=== PATIENT | female | born 1995 | race Caucasian/White ===

== ENCOUNTER 2018-08-07 23:59 | Inpatient (IN) | payer MEDICAID ==
[2018-08-08] MEDS: LACTATED RINGER'S 1,000 ML IV ×4 (01:04→21:23)
[2018-08-08] MEDS: TERBUTALINE 1 MG/ML INJ SC ×3 (01:08→08:45)
[2018-08-08 01:19] LABS: ADD UMIC YES; UR AMORPHOUS CRYSTAL FEW /HPF (NONE SEEN); UR ASCORBIC ACID NEGATIVE (NEGATIVE); UR BACTERIA FEW /HPF (NONE SEEN); UR BILIRUBIN (Dip) NEGATIVE (NEGATIVE); UR BLOOD (Dip) 2+ mg/dL (NEGATIVE); UR CLARITY CLOUDY (CLEAR); UR COLOR YELLOW (YELLOW); UR GLUCOSE (Dip) NEGATIVE (NEGATIVE); UR KETONES (Dip) NEGATIVE (NEGATIVE); UR LEUKOCYTE ESTERASE (Dip) 3+ Leu/ul (NEGATIVE); UR NITRITE (Dip) NEGATIVE (NEGATIVE); UR RBC 3 /HPF (0-5); UR SPECIFIC GRAVITY (Dip) 1.012 (1.003-1.030); UR SQUAMOUS EPITHELIAL CELL FEW /HPF (FEW); UR TOTAL PROTEIN (Dip) NEGATIVE (NEGATIVE); UR UROBILINOGEN (Dip) NEGATIVE (NEGATIVE); UR WBC 41 /HPF (0-5)
[2018-08-08] MEDS: LACTATED RINGER'S 250 ML IV (02:30)
[2018-08-08] MEDS ORDERED: OXYTOCIN 30 UNITS/LR 500 ML IV (07:00)
[2018-08-08] MEDS ORDERED: CARBOPROST 250 MCG INJ IM ×2 (07:00→14:00)
[2018-08-08] MEDS ORDERED: METHYLERGONOVINE 0.2 MG INJ IM ×2 (07:00→14:00)
[2018-08-08] MEDS ORDERED: MISOPROSTOL 200 MCG TAB PR ×2 (07:00→14:00)
[2018-08-08] MEDS ORDERED: CEFAZOLIN 2 GM/50 ML (PMX) 50 ML IVPB (07:00)
[2018-08-08 07:37] LABS: ADD MAN DIFF? NO
[2018-08-08 07:47] LABS: BASOPHILS % 0.1 % (0.0-2.0); EOSINOPHILS % 0.1 % (0.0-7.0); HEMATOCRIT 30.2 % (37.0-47.0); LYMPHOCYTES % 21.5 % (15.0-51.0); MEAN CORPUSCULAR HEMOGLOBIN 32.5 pg (29.0-33.0); MEAN CORPUSCULAR HGB CONC 33.1 g/dl (32.0-37.0); MEAN CORPUSCULAR VOLUME 98.1 fl (82.0-101.0); MEAN PLATELET VOLUME 10.7 fl (7.4-10.4); MONOCYTE # 0.5 10^3/ul (0.3-0.9); MONOCYTES % 5.2 % (0.0-11.0); NEUTROPHIL # 6.9 10^3/ul (1.6-7.5); NEUTROPHILS % 72.8 % (39.0-77.0); PLATELET COUNT 192 10^3/UL (140-415); RED BLOOD COUNT 3.08 10^6/ul (4.20-5.40); RED CELL DISTRIBUTION WIDTH 12.8 % (11.5-14.5)
[2018-08-08 07:47] LABS: WHITE BLOOD COUNT 9.5 10^3/ul (4.8-10.8)
[2018-08-08 08:00] LABS: INR 0.93; PROTIME 12.6 Sec (11.9-14.9)
[2018-08-08 08:01] LABS: PARTIAL THROMBOPLASTIN TIME 26.5 Sec (23.0-35.0)
[2018-08-08 08:29] LABS: HEPATITIS B SURFACE ANTIGEN NEGATIVE (NEGATIVE)
[2018-08-08] MEDS: CITRIC ACID/NA CITRATE 30 ML CUP PO (08:55)
[2018-08-08] MEDS ORDERED: morphine SULFATE/PF (10 MG/10 ML) INJ (09:19)
[2018-08-08] MEDS ORDERED: METOCLOPRAMIDE 10 MG INJ (09:19)
[2018-08-08] MEDS ORDERED: ONDANSETRON 4 MG INJ (09:19)
[2018-08-08] MEDS ORDERED: KETOROLAC 30 MG INJ (09:29)
[2018-08-08] MEDS ORDERED: PROPOFOL 20 ML (09:47)
[2018-08-08] MEDS ORDERED: NALOXONE (0.4 MG/ML) INJ IV (10:30)
[2018-08-08] MEDS ORDERED: ONDANSETRON 4 MG INJ IV ×2 (10:30)
[2018-08-08] MEDS ORDERED: DIPHENHYDRAMINE 50 MG INJ IV ×2 (10:30)
[2018-08-08] MEDS ORDERED: morphine (1 MG/ML) 10ML SYRINGE IV ×3 (10:30)
[2018-08-08] MEDS ORDERED: morphine 2 MG INJ IV ×2 (10:30)
[2018-08-08] MEDS: OXYTOCIN 30 UNITS/LR 500 ML IV ×3 (10:55→14:23)
[2018-08-08] MEDS: KETOROLAC 30 MG INJ IV ×2 (11:01→19:22)
[2018-08-08] MEDS: morphine 2 MG INJ IV (12:53)
[2018-08-08] MEDS ORDERED: NACL 0.9% 3 ML SYG IV (14:00)
[2018-08-08] MEDS ORDERED: NA PHOSPHATE/BIPHOS 133 ML ENEMA PR (14:00)
[2018-08-08 15:38] LABS: RAPID PLASMA REAGIN NONREACTIVE (NR)
[2018-08-09] MEDS: OXYTOCIN 30 UNITS/LR 500 ML IV (01:10)
[2018-08-09] MEDS: KETOROLAC 30 MG INJ IV ×2 (01:35→08:15)
[2018-08-09 07:27] LABS: ADD MAN DIFF? NO
[2018-08-09 07:41] LABS: BASOPHILS % 0.1 % (0.0-2.0); EOSINOPHILS % 0.1 % (0.0-7.0); HEMATOCRIT 25.8 % (37.0-47.0); HEMOGLOBIN 8.6 g/dl (12.0-16.0); LYMPHOCYTES # 2.1 10^3/ul (0.8-2.9); LYMPHOCYTES % 24.8 % (15.0-51.0); MEAN CORPUSCULAR HEMOGLOBIN 33.2 pg (29.0-33.0); MEAN CORPUSCULAR HGB CONC 33.3 g/dl (32.0-37.0); MEAN CORPUSCULAR VOLUME 99.6 fl (82.0-101.0); MEAN PLATELET VOLUME 10.6 fl (7.4-10.4); MONOCYTE # 0.5 10^3/ul (0.3-0.9); NEUTROPHIL # 5.8 10^3/ul (1.6-7.5); NEUTROPHILS % 68.6 % (39.0-77.0); PLATELET COUNT 161 10^3/UL (140-415); RED BLOOD COUNT 2.59 10^6/ul (4.20-5.40); RED CELL DISTRIBUTION WIDTH 12.8 % (11.5-14.5)
[2018-08-09 07:41] LABS: WHITE BLOOD COUNT 8.4 10^3/ul (4.8-10.8)
[2018-08-09] MEDS: INFLUENZA VIRUS VACCINE 0.5 ML (DISPENSING) IM* (08:16)
[2018-08-09] MEDS: HYDROCODONE/APAP (5/325) TAB PO ×3 (09:33→20:31)
[2018-08-09] MEDS: LANOLIN 7 GM TUBE TOP (13:05)
[2018-08-09] MEDS: IBUPROFEN 800 MG TAB PO ×2 (14:00→16:57)
[2018-08-10] MEDS: IBUPROFEN 800 MG TAB PO ×4 (00:07→21:50)
[2018-08-10] MEDS: HYDROCODONE/APAP (5/325) TAB PO ×5 (03:05→22:25)
[2018-08-11] MEDS: HYDROCODONE/APAP (5/325) TAB PO ×2 (03:31→08:41)
[2018-08-11] MEDS: IBUPROFEN 800 MG TAB PO (05:46)
[2018-08-11] MEDS: MEASLES,MUMPS,RUBELLA VACCINE INJ SC* (09:00)
[2018-08-11] MEDS: DIPHTH/TET/ACEL PERTUSS (ADULT) 0.5 ML VIAL IM* (11:54)
== END 2018-08-11 12:20 | disposition home or self-care (01) | DRG 788 ==
LOC: OBT 23:59 → L-D 23:59 → OBT 08-08 07:11 → L-D 08-08 07:13 → PP1 08-08 13:10
PROC: 10D00Z1 Extraction of Products of Conception, Low, Open Approach (ICD-10-PCS; principal; 2018-08-08 09:15)
DX: O41.03X0 Oligohydramnios, third trimester, not applicable or unspecified (principal); O32.1XX0 Maternal care for breech presentation, not applicable or unspecified; Z37.0 Single live birth; Z3A.38 38 weeks gestation of pregnancy; Z23 Encounter for immunization
CPT/HCPCS: 76818; 81001; 85025; 85610; 85730; 86592; 86850; 86900; 86901; 87086; 87340; 90686; 90715; 96360; 96361; 96372; 99464